=== PATIENT | female | born 1990 | race Caucasian/White ===

== ENCOUNTER → 2017-12-27 | Outpatient (CLI) | payer OTHER ==
[2017-12-27 19:01] LABS: ALT 39 U/L (9-52); AST 23 U/L (14-36); Albumin 4.8 g/dL (3.5-5.0); Alkaline Phosphatase 96 U/L (38-126); Anion Gap 15 mmol/L; Blood Urea Nitrogen 15 mg/dL (7-17); Calcium 10.2 mg/dL (8.4-10.2); Carbon Dioxide 23 mmol/L (22-30); Chloride 103 mmol/L (98-107); Cholesterol 166 mg/dL (<200); Glucose 91 mg/dL (74-99); HDL Cholesterol 55 mg/dL (40-60); LDL Cholesterol,Calculated 80 mg/dL (0-99); Potassium 4.6 mmol/L (3.5-5.1); Sodium 141 mmol/L (137-145); Total Bilirubin 0.4 mg/dL (0.2-1.3); Total Protein 7.9 g/dL (6.3-8.2); Triglycerides 154 mg/dL (<150)
[2017-12-27 19:11] LABS: Basophils # (A) 0.1 k/uL (0-0.2); Basophils % (A) 1 %; Eosinophils # (A) 0.3 k/uL (0-0.7); Eosinophils % (A) 3 %; HCT 49.3 % (34.0-46.0); HGB 15.7 gm/dL (11.4-16.0); Lymphocytes # (A) 3.6 k/uL (1.0-4.8); Lymphocytes % (A) 38 %; MCH 28.7 pg (25.0-35.0); MCV 89.9 fL (80.0-100.0); Mean Platelet Volume 7.7; Monocytes # (A) 0.3 k/uL (0-1.0); Monocytes % (A) 3 %; Neutrophils % (A) 52 %; Platelet Count 392 k/uL (150-450); RBC 5.48 m/uL (3.80-5.40); RDW 13.2 % (11.5-15.5); WBC 9.6 k/uL (3.8-10.6)
[2017-12-27 19:16] LABS: T4, Free (Free Thyroxine) 0.93 ng/dL (0.78-2.19)
[2017-12-28 01:16] LABS: Hepatitis A Antibody IgM Non-Reactive (Non-Reactive); Hepatitis B Core IgM Non-Reactive (Non-Reactive)
[2017-12-28 01:51] LABS: HIV AB P24 Non-Reactive (Non-Reactive); HIV P24 AG Non-Reactive (Non-Reactive)
[2017-12-28 15:37] LABS: C. trachomatis,PCR Negative (Neg,Equiv); Chlamydia trachomatis Source Urine; N. gonorrhoeae,PCR Negative (Neg,Equiv); Neisseria Source Urine
== END | disposition home or self-care (01) ==
LOC: MMGSC 12:05
PROVIDERS: ATTEND Family Medicine
DX: Z00.00 Encounter for general adult medical examination without abnormal findings (principal); N92.6 Irregular menstruation, unspecified; Z72.51 High risk heterosexual behavior
CPT/HCPCS: 36415; 80053; 80061; 80074; 83001; 83002; 84439; 84443; 85025; 87390; 87491; 87591

== ENCOUNTER → 2018-01-25 | Outpatient (CLI) | payer OTHER | END | disposition home or self-care (01) | LOC: MMGSC 15:25 | PROVIDERS: ATTEND Family Medicine | DX: N76.0 Acute vaginitis (principal) | CPT/HCPCS: 87070; 87205 ==

== ENCOUNTER → 2022-10-19 | Outpatient (CLI) | payer OTHER ==
--- NOTE | 2022-10-19 17:41 | P.SLEEP ---
History of Present Illness DATE: 10/19/2022 CONSULTATION/NEW PATIENT EVALUATION HISTORY OF PRESENT ILLNESS/SLEEP-WAKE EVALUATION: 32-year-old lady had been ev aluated in the sleep center for possible obstructive sleep apnea hypopnea syndrome, difficulties to initiate sleep and sleepiness during the day. SLEEP SCHEDULE: Usually sleep schedule on working days from 7 PM to 4 AM and on weekend from midnight until 10 AM. FALLING ASLEEP: Patient may have difficulties with the falling asleep, although no TV in bedroom. DURING SLEEP: Patient snores and wakes up from sleep more than 3 times usually without nocturia. Positive history of witnessed sleep apneas. No history of hypnogogical hallucinations, sleep paralysis, or cataplexy. Significant amount of movements during the sleep, positive history of sleep talking. DURING THE DAY/WAKE STATE: In the morning patient wake up tired, has difficulties to pay attention, has problems with memory, concentration, irritability, depression and anxiety. [place] sleepiness scale is significantly increased to 15. Patient may take nap around 4:30 PM. PAST MEDICAL HISTORY: Sinuses problems, bipolar disorder, polycystic ovary syndrome, shoulder arthritis, herpes. PAST SURGICAL HISTORY: None. MEDICATIONS: Buspiron 7.5 mg twice a day, valacyclovir once a day. SOCIAL HISTORY: Positive for smoking cigarettes, presently using vape, alcohol consumption occasional. FAMILY HISTORY: Hypertension, heart problems, stroke, asthma, headaches, emphysema, diabetes, mental illness. REVIEW OF SYSTEMS: Snoring, multiple awakenings from sleep, witnessed episodes of sleep apneas, sleepiness. No fevers. No double vision. No recent chest pain. No shortness of breath. No abdominal pain. No bleeding episodes. No blood in urine. No seizure episodes. PHYSICAL EXAMINATION: GENERAL: A pleasant patient without any distress. VITAL SIGNS: BP 127/79, HR 78, RR 16, weight 267.6 pounds, height 5 foot 6-1/4 inches, body mass index 42.8. HEENT: PERRLA, EOMI. Evaluation of oropharynx showed tongue protrudes midline, low position of soft palate Mallampati 2-3. NECK: Supple. No JVD. Thyroid is not palpable. 16-1/4 inches in circumference. LUNGS: Clear to percussion and to auscultation. Good air exchange. No wheezing or rhonchi. HEART: S1, S2 regular. No murmurs, gallops or rubs. ABDOMEN: Soft and nontender. Bowel sounds are present. No organomegaly appreciated. EXTREMITIES: No clubbing or cyanosis. PROJECT MANAGEMENT PROFESSOR: Awake, alert, and oriented x3. Cranial nerves 2 to 7 intact. There is no fasciculation or atrophy noted. No focal deficits observed. ASSESSMENT: 1. Snoring, witnessed episodes of stop breathing during the sleep, wide neck 16-1/4 inches in circumference, sleepiness [place] Sleepiness Scale 15. Obst ructive sleep apnea-hypopnea syndrome. 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 3. Obesity body mass index 42.8. 4. Sinuses problems. 5 shoulder arthritis. 6 . Polycystic ovary syndrome. 7. History of bipolar disorder. 8. History of herpetic infection. PLAN: 1. Polysomnography for evaluation of patient's breathing during sleep. 2. CPAP/BiPAP titration if sleep study confirms obstructive sleep apnea- hypopnea syndrome. 3. Preferable position during sleep on the side. 4. No driving if patient feels any sleepiness. Patient is aware of civil and criminal liability for unsafe driving. 5. Sleep hygiene with regular sleep time for at least 7.5-8 hours. 6. Watching and losing weight. 7. I discussed with the patient's stimulus control, paradoxical intention, no watching clock to help with difficulties to initiate sleep, although it most probably related to shiftwork. Thank you very much for referring this patient for consultation. Sincerely, Sidney Griffiths MD, PhD, FAASM. Diplomat of [employer], Sleep Medicine Board by [employer] Retail Customer Service Representative of [facility] [place] [facility] - Sleep Note Sleep Note: Temperature: Pulse Rate: Respiratory Rate: Blood Pressure: SpO2: Height: Weight: BMI: Neck Circumference:
== END ==
LOC: SLEEP 16:41
PROVIDERS: ATTEND Internal Medicine
DX: G47.33 Obstructive sleep apnea (adult) (pediatric) (principal); E66.9 Obesity, unspecified; Z68.41 Body mass index [BMI] 40.0-44.9, adult; E28.2 Polycystic ovarian syndrome; Z86.59 Personal history of other mental and behavioral disorders; Z86.19 Personal history of other infectious and parasitic diseases; M19.019 Primary osteoarthritis, unspecified shoulder; J01.90 Acute sinusitis, unspecified
CPT/HCPCS: 99211